=== PATIENT | male | born 1990 | race Caucasian/White ===

== ENCOUNTER 2017-07-10 16:04 | Emergency (ER) | payer OTHER ==
[~2017-07-10] VITALS: Ht 165.1 cm; Wt 72.6 kg
[~2017-07-10 16:04] MED LIST: GABAPENTIN800 MG PO; HYDROXYZINE PAM25 MG PO; MIRTAZAPINE15 MG PO
[2017-07-10] MEDS ORDERED: LEXAPRO20 MG PO (16:20)
[2017-07-10] MEDS ORDERED: PAMELOR25 MG PO (16:21)
[2017-07-10] MEDS ORDERED: MINIPRESS1 MG PO (16:21)
[2017-07-10] MEDS ORDERED: IBUPROFEN IB200 MG PO (16:22)
[2017-07-10] MEDS ORDERED: METHYLPREDNISOLO4 M1 PO (16:28)
== END 2017-07-10 16:35 | disposition home or self-care (01) ==
LOC: ED 16:04
DX: M25.522 Pain in left elbow (principal); Z87.891 Personal history of nicotine dependence; Z79.899 Other long term (current) drug therapy
CPT/HCPCS: 99283